=== PATIENT | female | born 1990 | race Two or more races ===

== ENCOUNTER 2016-10-22 19:05 | Observation (INO) | payer OTHER ==
[2016-10-22 19:38] LABS: Urine Bilirubin Negative (Negative); Urine Color Yellow (Yellow); Urine Glucose Normal (Normal); Urine Ketone Negative (Negative); Urine Nitrite Negative (Negative); Urine RBC 157 /hpf (0 - 4); Urine Squamous Epithelial Cell FEW /hpf (<5); Urine Urobilinogen Normal (Negative); Urine pH 5.5 (5.0-8.0)
[2016-10-22 19:45] LABS: Urine Blood 2+ /uL (Negative)
[2016-10-22] MEDS ORDERED: LACTATED RINGER'S 1,000 ML IV SCH (21:01)
== END 2016-10-22 21:32 | disposition left against medical advice (07) | DRG 566 ==
LOC: LDRP 19:05
PROVIDERS: ADMIT Obstetrics & Gynecology; ATTEND Obstetrics & Gynecology
DX: O46.92 Antepartum hemorrhage, unspecified, second trimester (principal); Z3A.22 22 weeks gestation of pregnancy
CPT/HCPCS: 59025; 76815; 81001; G0378; G0434; 96365

== ENCOUNTER → 2016-10-22 | Emergency (ER) | payer OTHER | END | disposition left against medical advice (07) | LOC: ER 18:57 | DX: R10.9 Unspecified abdominal pain (principal); Z53.21 Procedure and treatment not carried out due to patient leaving prior to being seen by health care provider ==